=== PATIENT | female | born 1950 | race Caucasian/White ===

== ENCOUNTER 2017-05-19 00:32 | Day surgery (SDC) | payer OTHER ==
--- NOTE | 2017-05-18 18:51 | HISTORY AND PHYSICAL ---
DATE OF ADMISSION: May 19, 2017 CHIEF COMPLAINT Postmenopausal bleeding. HISTORY OF PRESENT ILLNESS The patient is a 66-year-old 2 with postmenopausal bleeding beginning many months ago, and it was mild. It had no relieving or exacerbating factors. She had a workup and was found to have no signs of hyperplasia or malignancy on endometrial biopsy. There was a polypoid mass identified on saline infusion sonography, and she was consented for a hysteroscopic polypectomy and a fractional D and C. MEDICATIONS No medications. ALLERGIES No known drug allergies. REVIEW OF SYSTEMS GENITOURINARY: Per HPI. GENERAL, SKIN, EYES, EARS, NOSE, MOUTH, NECK, RESPIRATORY, CARDIOVASCULAR, GASTROINTESTINAL, NEUROLOGICAL, AND PSYCHIATRIC: All reviewed and noncontributory. PAST HISTORY Appendectomy. FAMILY HISTORY Noncontributory. SOCIAL HISTORY She does not drink alcohol. She is a nonsmoker. No illicit drug use. PHYSICAL EXAMINATION VITAL SIGNS: BP 122/78, temp 97.8, weight 178. CONSTITUTIONAL: Well-nourished, well-developed female in no distress. SKIN: Without rash or lesions. NECK: Supple, without masses. HEART: Regular rate and rhythm. LUNGS: Clear to auscultation bilaterally. ABDOMEN: Soft, nontender, nondistended. Bowel sounds positive. EXTREMITIES: Nontender. No edema. PSYCHIATRIC: Alert and oriented times three. Normal mood and affect. PELVIC: Normal external female genitalia. Well-estrogenized vaginal lining. No bladder tenderness. Cervix has a normal appearance. No lesions. Uterus measures 6 x 5 cm. No adnexal masses or tenderness. ASSESSMENT Postmenopausal bleeding. PLAN Plan to proceed with hysteroscopic polypectomy and fractional dilatation and curettage. [facility]Edward
[~2017-05-19] VITALS: Ht 162.6 cm; Wt 78.5 kg
[~2017-05-19 00:32] MED LIST: AUG875 PO; CYC10; NO RX MEDS; OXYC1TAB54 PO; PER; PROBIOTICS
[2017-05-19 10:11] VITALS: BP 146/85
[2017-05-19] MEDS ORDERED: LIDOCAINE 2% IV 100 MG/5ML SYR ONE (10:17)
[2017-05-19] MEDS ORDERED: fentaNYL CITR 100 MCG/2 ML AMP ONE (10:17)
[2017-05-19] MEDS ORDERED: PROPOFOL EMUL(*) 10MG/ML 20 ML 20 ML ONE (10:18)
[2017-05-19] MEDS ORDERED: SCOPOLAMINE 1.5 MG PATCH TD ONE (10:19)
[2017-05-19 10:29] LABS: PLATELET COUNT, AUTOMATED 295 K/uL (150-450)
[2017-05-19] MEDS ORDERED: MIDAZOLAM 2 MG/2 ML VIAL IVP ONE (10:30)
[2017-05-19] MEDS ORDERED: cefOXitin/DEX(*) 2GM/50ML PREM 50 ML IVPB ONE (10:30)
[2017-05-19] MEDS ORDERED: CELECOXIB 200 MG CAP PO ONE (10:30)
[2017-05-19] MEDS ORDERED: NORMOSOL R SOLN(*) 1000 ML BAG 1,000 ML IV PRN (10:30)
[2017-05-19] MEDS ORDERED: HYDROmorphone HCL 2 MG TAB PO ONE (10:30)
[2017-05-19] MEDS ORDERED: FAMOTIDINE 20 MG TAB PO ONE (10:30)
[2017-05-19] MEDS ORDERED: LIDOCAINE/SOD BICARB 8.4% SYR ID ONE (10:30)
--- NOTE | 2017-05-19 10:42 | Post Operative Note ---
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
[2017-05-19] MEDS ORDERED: OXYTOCIN 10 UNIT/ML SDV ONE (11:27)
[2017-05-19] MEDS ORDERED: IBUP800T37 PO (11:41)
[2017-05-19] MEDS ORDERED: HYDR2TAB4 PO (11:41)
--- NOTE | 2017-05-19 11:42 | OB/GYN Discharge Summary ---
Discharge Summary Reason for Hosp/Final Diag: (1) Status post hysteroscopic polypectomy Hospital Course & Plan: HSCOPE POLYPECTOMY PERFORMED NO COMPLICATION TOLERATED WELL Lates Vital Signs Vital Signs Date Time Temp Pulse Resp B/P (MAP) Pulse Ox O2 Delivery O2 Flow Rate FiO2 05/19/17 10:11 99.2 80 16 146/85 (105) 92 Room Air Weight (Pounds): 173 Result Diagram: 05/19/17 1004 Condition: Improved Discharge: Home, Self Custodial Meds Active Scripts Ibuprofen (IBUPROFEN) 800 Mg Tablet, 1 TAB PO Q8H, #30 TAB 0 Refills Take with food every 8 hours. Prov:SHARRON PENA MD 05/19/17 Hydromorphone Hcl (HYDROMORPHONE HCL) 2 Mg Tablet, 2-4 MG PO Q4H for PAIN, #20 TAB 0 Refills Prov:SHARRON PENA MD 05/19/17 Follow up with: Dr. Pena [phone] Follow up in: 2 wks PO Discharge Diet: As Tolerates Discharge Activity: Pelvic Rest Copies to: SHARRON PENA MD, JOHN MD May 19, 2017 11:42
[2017-05-19] MEDS ORDERED: DEXAMETHASONE SOD 4 MG/ML VIAL ONE (11:53)
[2017-05-19] MEDS ORDERED: ONDANSETRON 4 MG/2 ML VIAL ONE (11:54)
[2017-05-19] MEDS ORDERED: LR(*) 1000 ML BAG 1,000 ML IV ONE (12:14)
[2017-05-19] MEDS ORDERED: METOCLOPRAMIDE 10 MG/2 ML SDV IVP PRN (12:15)
[2017-05-19] MEDS ORDERED: HYDROmorphone HCL 2 MG TAB PO PRN (12:15)
[2017-05-19 13:01] VITALS: BP 129/80
[2017-05-19 13:29] VITALS: BP 120/74
[2017-05-19 13:54] VITALS: BP 123/83
[2017-05-19 13:55] VITALS: BP 124/81
[2017-05-19] MEDS ORDERED: IBUPROFEN 800 MG TAB PO SCH (18:00)
--- NOTE | 2017-05-19 21:55 | OPERATIVE REPORT 1 ---
EVENT DATE: May 19, 2017 SURGEON: Humza Pena MD ANESTHESIOLOGIST: Arnie Wooten MD ANESTHESIA: General. PREOPERATIVE DIAGNOSES 1. Postmenopausal bleeding. 2. Uterine polyp prolapsing out the cervix. POSTOPERATIVE DIAGNOSES 1. Postmenopausal bleeding. 2. Uterine polyp prolapsing out the cervix. PROCEDURES PERFORMED 1. Hysteroscopic polypectomy. 2. Fractional dilation and curettage. 3. Excisional biopsy of a uterine lesion in the left cornual region of the uterus. COMPLICATIONS None. FLUIDS Normosol 700 mL IV. HYSTEROSCOPIC FLUID Input was 1500 mL of normal saline with deficit of 2 mL. ESTIMATED BLOOD LOSS Minimal. INDICATIONS The patient is a 66-year-old female with postmenopausal bleeding. She had an endometrial biopsy which was normal and saline-infusion sonography showing uterine polyp. After discussion of risks and alternatives, the patient desired to proceed with hysteroscopic polypectomy and fractional D and C. FINDINGS Uterus 6 x 5 cm. No adnexal masses. She had a uterine polyp that prolapsed through the cervix. DESCRIPTION OF PROCEDURE After informed consent was obtained, the patient was taken to the operating room with the IV running and placed in the supine position where general anesthesia was obtained without difficulty. She was then placed in the [facility] and examined under anesthesia with the above findings. She was then prepped and draped in the usual fashion. The bladder was drained. A side-out speculum was placed into the vagina. The cervix was grasped with a single-toothed tenaculum. The endocervix was currettaged with a Kevorkian curette and a sample passed off the table. The cervix was dilated to allow passage of the hysteroscope. The hysteroscope was advanced. The stalk of the cervical polyp was noted to be prolapsed from the anterior uterine wall. The MyoSure was used to remove the polyp. There was a lesion in the left cornual region that was biopsied specifically with hysteroscopic biopsy forceps and passed off the table. The lesion was completely excised. A curettage of the endometrial lining was performed with a sharp curette, and the sample was passed off the table. All instruments were removed from the vagina. The tenaculum sites were hemostatic. The patient was taken out of the [facility], awakened from anesthesia, and taken to the recovery room in stable condition. [facility]
== END 2017-05-19 13:01 | disposition home or self-care (01) ==
LOC: OR 00:32
PROVIDERS: ATTEND Obstetrics & Gynecology
DX: N95.0 Postmenopausal bleeding (principal); N84.0 Polyp of corpus uteri; N81.2 Incomplete uterovaginal prolapse
CPT/HCPCS: 36415; 58558; 85025; 88305; J0694; J1100; J2001; J2405; J2590; J2704; J3010

== ENCOUNTER 2017-10-26 00:45 | Day surgery (SDC) | payer OTHER ==
[2017-10-26] VITALS (7 sets, daily range): BP systolic 110–137; BP diastolic 74–88
[~2017-10-26] VITALS: Ht 162.6 cm; Wt 75.3 kg
[~2017-10-26 00:45] MED LIST changes: +HYDR2TAB4 PO; +IBUP800T37 PO
[2017-10-26] MEDS ORDERED: PROPOFOL EMUL(*) 10MG/ML 20 ML 20 ML ONE (07:09)
[2017-10-26] MEDS ORDERED: LIDOCAINE/SOD BICARB 8.4% SYR ID ONE (09:30)
[2017-10-26] MEDS ORDERED: NORMOSOL R SOLN(*) 1000 ML BAG 1,000 ML IV PRN (09:30)
--- NOTE | 2017-10-26 10:48 | Short(Outpt) Discharge Summary ---
Discharge Summary Reason for Hosp/Final Diag: (1) Colon cancer screening Status: Chronic Hospital Course & Plan: Colonoscopy completed without problems, normal. Departure Discharge to: Home, Self Care Discharge Instructions Home Meds No Active Prescriptions or Reported Meds Diet: Regular Activity: As Tolerated Special Instructions: Your colonoscopy was completed without any problems and your prep was excellent (Good Job!!). I didn't find any polyps or other problems. It was normal. I recommend that you have another colonoscopy in 10 years. SHARRON ZAMUDIO MD Oct 26, 2017 10:48
== END 2017-10-26 12:05 | disposition home or self-care (01) ==
LOC: OR 00:45
PROVIDERS: ATTEND Surgery
DX: Z12.11 Encounter for screening for malignant neoplasm of colon (principal)
CPT/HCPCS: 00812; 45378; J2704